=== PATIENT | female | born 1985 | race American Indian/Alaskan Native ===

== ENCOUNTER 2021-10-10 22:51 | Inpatient (IN) | payer SELFPAY ==
[2021-10-10] MEDS ORDERED: ePHEDrine SULFATE 50 MG/1 ML INJ IV PRN (23:15)
[2021-10-10] MEDS ORDERED: LIDOCAINE (2%) 20 MG/1 ML VIAL 20 ML MDV INFILTRATI ONE (23:15)
[2021-10-10] MEDS ORDERED: ACETAMINOPHEN 325 MG TAB PO PRN (23:15)
[2021-10-10] MEDS ORDERED: LACTATED RINGERS 1,000 ML IV SCH (23:15)
[2021-10-10] MEDS ORDERED: ONDANSETRON 4 MG/2 ML INJ IV PRN (23:15)
[2021-10-10] MEDS ORDERED: OXYTOCIN 10 UNIT/1 ML INJ IM PRN (23:15)
[2021-10-10] MEDS ORDERED: NalbUPHINE 10 MG/1 ML INJ IV PRN (23:15)
[2021-10-10] MEDS ORDERED: LOPERAMIDE 2 MG CAP PO PRN (23:15)
[2021-10-10] MEDS ORDERED: MINERAL OIL 30 ML ORAL LIQD PO PRN (23:15)
[2021-10-10] MEDS ORDERED: fentaNYL 100 MCG/2 ML INJ IV PRN (23:15)
[2021-10-10] MEDS ORDERED: miSOPROStol 200 MCG TAB PR PRN (23:15)
[2021-10-10] MEDS ORDERED: TERBUTALINE 1 MG/1 ML INJ SUB-Q PRN (23:15)
[2021-10-10] MEDS ORDERED: METHYLERGONOVINE MALEATE 0.2 MG/ML VIAL IM PRN (23:15)
[2021-10-10] MEDS ORDERED: CARBOPROST TROMETHAMINE 250 MCG/1 ML INJ IM PRN (23:15)
--- NOTE | 2021-10-10 23:23 | History and Physical Report ---
History of Present Illness Date of examination: 10/10/21 Date of admission: 09/23/21 Chief complaint: Contractions. History of present illness: 35 year old presents to L&D complaining of contractions. Patient denies vaginal bleeding or leaking of fluid. Patient received care at [facility]; very limited care/late presentation for care. records are available. LMP 02/05/21. EDC 10/24/21 (based on ultrasound). significant for the following: AMA, very late presentation to care; limited care. labs are as follows: A+, antibody screen negative, rubella immune, hepatitis B surface antigen negative, HIV negative, RPR nonreactive, hemoglobin electrophoresis AA, 1 hour sugar test 126, gonorrhea negative, chlamydia negative, GBS negative. Past History Past Medical History: no pertinent history Past Surgical History: no surgical history [employer] History: denies: chlamydia, gonorrhea, hepatitis B, hepatitis C, herpes, HIV, syphilis, trichomonas Family/Genetic History: none Social history: lives with family, full code. denies: smoking, alcohol abuse, prescription drug abuse, IV drug use - Obstetrical History Expected Date of Delivery: 10/24/21 Actual Gestation: 38 Week(s) 0 Day(s) : 4 Para: 3 Hx # Term Pregnancies: 3 Number of Pregnancies: 0 Spontaneous Abortions: 0 Induced : 0 Number of Living Children: 3 Medications and Allergies Allergies Allergy/AdvReac Type Severity Reaction Status Date / Time No Known Allergies Allergy Unverified 01/28/20 14:42 Home Medications Medication Instructions Recorded Confirmed Last Taken Type Lidocain2.5%/Prilocai2.5% [Emla] 1 applic TP ONCE #1 tube 01/29/20 Unknown Rx Review of Systems All systems: negative (contractions) - Vital Signs Vital signs: Vital Signs Pulse BP Pulse Ox 76 117/74 87 10/10/21 23:13 10/10/21 23:13 10/10/21 23:13 Temp Pulse Resp BP Pulse Ox 78 117/74 98 10/10/21 23:14 10/10/21 23:13 10/10/21 23:14 - Physical Exam Abdomen: Positive: normal appearance, soft. Negative: distention, tenderness, guarding, rigidity Genitourinary (Female): Positive: normal external genitalia, normal perenium. Negative: perineal/vulvar lesions Vagina: Positive: normal moisture Uterus: Positive: enlarged. Negative: tender Anus/Rectum: Positive: normal perianal skin Extremities: Negative: tenderness, edema - Obstetrical FHR: category 2 FHR comments: Normal baseline FHR, moderate variability. Brief variable FHR decelerations with rapid return to baseline. Uterine Contraction Monitor Mode: External Cervical Dilatation: 7.5 Cervical Effacement Percentage: 90 (BBOW) station: -2 Uterine Contraction Pattern: Regular Uterine Contraction Intensity: Moderate Assessment and Plan A: at 38 weeks gestation. Active labor. GBS negative. P: Admit. EFM. Epidural if desired. Anticipate vaginal .
[2021-10-10] MEDS ORDERED: OXYTOCIN DRIP 30 UNITS/500 ML BAG IV SCH (23:45)
[2021-10-11] MEDS ORDERED: HYDROcodone/ACETAMINOPHEN 5-325 MG TAB PO PRN (00:02)
[2021-10-11] MEDS ORDERED: MAGNESIUM HYDROXIDE (MOM) ORAL LIQD UDC PO PRN (00:02)
[2021-10-11] MEDS ORDERED: ONDANSETRON 4 MG/2 ML INJ IV PRN (00:02)
[2021-10-11] MEDS ORDERED: LANOLIN/ZINC/DIMETHICONE (LANSINOH) 7 GM TP PRN (00:02)
[2021-10-11] MEDS ORDERED: WITCH HAZEL/ GLYCERIN PAD TP PRN (00:02)
[2021-10-11 00:07] LABS: Hematocrit 37.8 % (30.3-42.9); Hemoglobin 12.5 gm/dl (10.1-14.3); Mean Corpuscular HGB Conc 33 % (30-34); Mean Corpuscular Volume 87 fl (79-97); Platelet Count 262 K/mm3 (140-440); Red Blood Count 4.36 M/mm3 (3.65-5.03); Red Cell Distribution Width 14.4 % (13.2-15.2)
--- NOTE | 2021-10-11 00:09 | Procedure Note ---
OB Delivery Note - Delivery Date of Delivery: 10/10/21 Surgeon: CUCO GEE Estimated blood loss: other (50 cc) - Vaginal Delivery presentation: vertex Delivery position: OA Intrapartum events: precipitous labor- <3hr Delivery induction: none Delivery monitor: external FHT, external uterine Route of delivery: Delivery placenta: spontaneous Delivery cord: 3 umbilical vessels Episiotomy: none Delivery laceration: none Anesthesia: none Delivery comments: Spontaneous vaginal delivery at 23:45 of liveborn male infant weighing 7 lb. 5 oz. over intact perineum with apgars of 8/9. Precipitous labor and . was atraumatic; no nuchal cord. Baby placed on mom's chest immediately after delivery. Spontaneous cry and respirations. Baby dried with warm blankets. Delayed cord clamping. 3 vessel cord double clamped and cut after cessation of pulsation. Spontaneous delivery of intact placenta and membranes at 23:52. EBL 50 cc. Pitocin to IV fluids after delivery of placenta. Fundus firm and midline. No lacerations noted. Vaginal sweep negative. Sponge count correct. Mother and baby stable in birthing room.
[2021-10-11] MEDS: IBUPROFEN 600 MG TAB PO SCH ×3 (06:57→18:53)
[2021-10-11] MEDS ORDERED: FERROUS SULFATE 325 MG TAB PO SCH (10:00)
--- NOTE | 2021-10-11 10:14 | Progress Note ---
Assessment and Plan A: PP Day #1 Stable P: Follow Routine Orders Depo Provera 150mg IM x 1 dose prior to discharge D/C Home in the AM RTO in 6 Weeks Subjective - Subjective Date of service: 10/11/21 Patient reports: appetite normal, voiding normally, pain well controlled, ambulating normally : doing well, bottle feeding (and ) Objective - Vital Signs Latest vital signs: Vital Signs Temp Pulse Resp BP BP Pulse Ox Pulse Ox 10/11/21 07:44 98.1 F 72 16 97/57 98 10/11/21 06:57 14 10/11/21 05:30 98.5 F 88 14 112/76 96 10/11/21 01:40 98.3 F 86 14 119/69 98 98 10/11/21 00:52 76 97 10/11/21 00:47 68 100 10/11/21 00:46 98.0 F 67 115/57 10/11/21 00:42 59 L 99 10/11/21 00:37 65 99 10/11/21 00:32 73 99 10/11/21 00:30 58 L 115/57 10/11/21 00:27 59 L 100 10/11/21 00:23 58 L 93 10/11/21 00:22 63 99 10/11/21 00:17 64 98 10/11/21 00:14 68 92 10/11/21 00:12 70 98 10/11/21 00:07 58 L 100 10/11/21 00:02 78 99 10/10/21 23:58 72 144/62 10/10/21 23:57 71 97 10/10/21 23:52 68 98 10/10/21 23:47 72 98 10/10/21 23:42 71 97 10/10/21 23:39 67 119/73 10/10/21 23:37 67 99 98 10/10/21 23:24 67 99 10/10/21 23:21 97.7 F 18 97 10/10/21 23:19 63 98 10/10/21 23:14 78 98 10/10/21 23:13 76 117/74 87 Intake and Output 10/10/21 10/11/21 10/11/21 22:59 06:59 14:59 Intake Total 100 Output Total 100 Balance 0 Intake: Oral 100 Output: Urine 100 Void 100 Other: Total, Intake Amount 100 Total, Output Amount 100 # Voids Void 300 Weight 58.967 kg Estimated Blood Loss 50 - Exam Breasts: Present: normal Cardiovascular: Present: Regular rate Lungs: Present: Clear to auscultation, Normal air movement Abdomen: Present: normal appearance, soft, normal bowel sounds Uterus: Present: normal, firm, fundal height below umbilicus Extremities: Present: normal
--- NOTE | 2021-10-11 10:16 | Discharge Summary ---
Providers - Providers Date of Admission: 10/10/21 23:15 Date of discharge: 10/12/21 Attending physician: SHERRIE BRUNSON Primary care physician: SHERRIE BRUNSON Hospitalization Reason for admission: active labor Delivery: Episiotomy: none Laceration: none Other procedures: none complications: none Discharge diagnosis: IUP at term delivered Ge[place] baby: male Condition at discharge: Good Disposition: 01 HOME / SELF CARE / HOMELESS Plan - Provider Discharge Summary Activity: routine, no sex for 6 weeks, no heavy lifting 4 weeks, no strenuous exercise Diet: routine Instructions: routine Additional instructions: [] Smoking cessation referral if applicable(refer to patient education folder for contact #) [] Refer to [facility]'s [facility] Booklet Call your doctor immediately for: * Fever > 100.5 * Heavy vaginal bleeding ( >1 pad per hour) * Severe persistent headache * Shortness of breath * Reddened, hot, painful area to leg or breast * Drainage or odor from incision. * Keep incision clean and dry at all times and follow doctor's instructions regarding bathing/showering - Follow up plan Follow up: SHERRIE BRUNSON MD [Primary Care Provider] - 6 Weeks
[2021-10-11] MEDS ORDERED: medroxyPROGESTERone ACETATE 150 MG/ML SYRINGE IM SCH (10:30)
[2021-10-11] MEDS: DOCUSATE SODIUM 100 MG CAP PO SCH ×2 (11:53→22:25)
[2021-10-11 15:57] LABS: Hematocrit 31.6 % (30.3-42.9); Hemoglobin 10.2 gm/dl (10.1-14.3)
[2021-10-11] MEDS ORDERED: medroxyPROGESTERone ACETATE 150 MG/ML SYRINGE IM ONE (17:16)
[2021-10-12] MEDS: IBUPROFEN 600 MG TAB PO SCH
[2021-10-12 09:18] VITALS: BP 117/58
[2021-10-12] MEDS: DOCUSATE SODIUM 100 MG CAP PO SCH (09:48)
== END 2021-10-12 10:45 | disposition home or self-care (01) | DRG 807 ==
LOC: TRG 22:51 → APU 22:53 → TRG 23:15 → LD 23:15 → OB 10-11 01:28
PROVIDERS: ADMIT Obstetrics & Gynecology; ATTEND Obstetrics & Gynecology
PROC: 10E0XZZ Delivery of Products of Conception, External Approach (ICD-10-PCS; principal; 2021-10-11)
DX: O62.3 Precipitate labor (principal); Z37.0 Single live birth; Z3A.38 38 weeks gestation of pregnancy; Z20.822 Contact with and (suspected) exposure to COVID-19
CPT/HCPCS: 36415; 59025; 85014; 85018; 85027; 86592; 86850; 86900; 86901; G0378; J1050; U0003